=== PATIENT | female | born 1960 | race African-American/Black ===

== ENCOUNTER 2021-12-05 13:27 | Observation (INO) | payer OTHER, SELFPAY ==
[2021-12-05 14:23] LABS: #Eosinphils 0.2 thou/uL (0.0-0.7); #Lymphocytes 2.6 thou/uL (1.20-3.40); #Monocytes 0.5 thou/uL (0.11-0.59); #Neutrophils 3.2 thou/uL (1.40-6.50); %Basophils 0.6 % (0.0-1.0); %Eosinophils 3.4 % (0.0-10.0); %Lymphocytes 39.1 % (21.0-51.0); %Neutrophils 48.9 % (42.0-75.0); Hemoglobin 13.1 g/dL (12.0-16.0); Mean Corpuscular HGB CONC 33.5 g/dL (32.0-36.0); Mean Corpuscular Hemoglobin 32.1 pg (27.0-31.0); Mean Corpuscular Volume 95.8 fL (78.0-98.0); Mean Platelet Volume 8.7 fL (7.4-10.4); Platelet Count 214 thou/uL (130-400); RBC Distribution Width 11.4 % (11.5-14.5); Red Blood Cell (RBC) Count 4.07 mill/uL (4.20-5.40); White Blood Cell (WBC) Count 6.5 thou/uL (4.8-10.8)
[2021-12-05 14:42] LABS: ALT (SGPT) 13 U/L (8-55); AST (SGOT) 18 U/L (5-34); Albumin 3.6 g/dL (3.4-4.8); Alkaline Phosphatase 73 U/L (40-110); Anion Gap 11 mmol/L (10-20); BUN (Urea Nitrogen) 16 mg/dL (9.8-20.1); Bilirubin, Total 0.4 mg/dL (0.2-1.2); Calc. Creatinine Clearance 0 mL/min (70-130); Calcium 9.3 mg/dL (7.8-10.44); Carbon Dioxide 29 mmol/L (23-31); Chloride 106 mmol/L (98-107); Estimated GFR 69; Glucose 87 mg/dL (80-115); Lipase 27 U/L (8-78); Potassium 3.9 mmol/L (3.5-5.1); Protein, Total 6.6 g/dL (5.8-8.1); Sodium 142 mmol/L (136-145)
[2021-12-05] MEDS ORDERED: Nitroglycerin 0.4 MG TAB (25 Tab Bottle) SL PRN (16:26)
[2021-12-05 17:11] VITALS: BMI 32.4
[2021-12-05 17:40] LABS: Troponin I Less than 0.010 ng/mL (< 0.028)
[2021-12-05] MEDS: Hydrochlorothiazide 25 MG TAB PO SCH (20:12)
[2021-12-05 20:33] LABS: Troponin I Less than 0.010 ng/mL (< 0.028)
[2021-12-05] MEDS ORDERED: Gabapentin 300 MG CAP PO SCH (21:00)
[2021-12-05] MEDS: Cyclobenzaprine 10 MG TAB PO SCH (21:32)
[2021-12-06 05:10] LABS: Cardiac Risk 3.6 (Less than 4.5)
[2021-12-06] MEDS ORDERED: Albuterol Sulfate 2.5 mg/3 ml Neb NEB SCH ×2 (06:30→18:30)
[2021-12-06] MEDS: Budesonide 0.25 MG/2 ML NEB INH SCH ×2 (06:50→12:24)
[2021-12-06] MEDS: Hydrochlorothiazide 25 MG TAB PO SCH (07:32)
[2021-12-06] MEDS ORDERED: Regadenoson 0.4 MG/5 ML SYRINGE ONE (08:59)
[2021-12-06] MEDS ORDERED: Hydrochlorothiazide 25 MG TAB PO SCH (09:00)
[2021-12-06] MEDS ORDERED: Amlodipine 10 MG TAB PO SCH (09:00)
[2021-12-06] MEDS ORDERED: Enoxaparin Sodium 40 MG/0.4 ML SYRINGE SC SCH (09:00)
[2021-12-06] MEDS ORDERED: Amlodipine 5 MG TAB PO SCH (09:00)
[2021-12-06] MEDS: Cyclobenzaprine 10 MG TAB PO SCH (10:58)
[2021-12-06 12:31] VITALS: BP 129/69; TEMP 98.1
[2021-12-06] MEDS ORDERED: Budesonide 0.25 MG/2 ML NEB INH SCH (18:30)
== END 2021-12-06 15:30 | disposition home or self-care (01) ==
LOC: ERS 13:27 → 2SW 15:17
PROVIDERS: ADMIT Hospitalist; ATTEND Hospitalist
DX: R07.89 Other chest pain (principal); I25.10 Atherosclerotic heart disease of native coronary artery without angina pectoris; J44.9 Chronic obstructive pulmonary disease, unspecified; I11.9 Hypertensive heart disease without heart failure; G89.29 Other chronic pain; M54.9 Dorsalgia, unspecified; I08.3 Combined rheumatic disorders of mitral, aortic and tricuspid valves; F14.11 Cocaine abuse, in remission; F12.11 Cannabis abuse, in remission; Z79.82 Long term (current) use of aspirin; Z79.891 Long term (current) use of opiate analgesic; Z79.899 Other long term (current) drug therapy; Z88.1 Allergy status to other antibiotic agents; Z88.2 Allergy status to sulfonamides; Z20.822 Contact with and (suspected) exposure to COVID-19
CPT/HCPCS: 36415; 71045; 78452; 80053; 80061; 83690; 83880; 84484; 85025; 93005; 93017; 93306; 94640; 94760; A9500; G0378; J2785; J7611; J7626; U0003; U0005

== ENCOUNTER 2021-12-17 17:05 | Emergency (ER) | payer BC, SELFPAY ==
[2021-12-17] MEDS ORDERED: Ibuprofen 200 MG TAB ONE (17:34)
[2021-12-17 17:43] LABS: #Eosinphils 0.1 thou/uL (0.0-0.7); #Lymphocytes 2.7 thou/uL (1.20-3.40); #Monocytes 0.5 thou/uL (0.11-0.59); #Neutrophils 3.7 thou/uL (1.40-6.50); %Basophils 0.6 % (0.0-1.0); %Lymphocytes 38.4 % (21.0-51.0); %Monocytes 7.5 % (0.0-10.0); %Neutrophils 51.5 % (42.0-75.0); Hemoglobin 13.7 g/dL (12.0-16.0); Mean Corpuscular HGB CONC 33.3 g/dL (32.0-36.0); Mean Corpuscular Hemoglobin 31.5 pg (27.0-31.0); Mean Corpuscular Volume 94.7 fL (78.0-98.0); Mean Platelet Volume 8.6 fL (7.4-10.4); Platelet Count 243 thou/uL (130-400); RBC Distribution Width 11.4 % (11.5-14.5); Red Blood Cell (RBC) Count 4.35 mill/uL (4.20-5.40); White Blood Cell (WBC) Count 7.1 thou/uL (4.8-10.8)
[2021-12-17 17:46] LABS: Bilirubin Negative (Negative); Blood, Urine Negative (Negative); Glucose, Urine (Dipstick) Normal (Negative); Ketone, Urine Negative (Negative); Leukocyte 500 Leu/uL (Negative); Nitrite Negative (Negative); Protein, Urine (Dipstick) Negative (Neg-Trace); RBC/HPF 0-3 HPF (0-3); Specific Gravity, Urine 1.018 (1.002-1.036); Urobilinogen Normal mg/dL (Less than 2); pH, Urine 6.5 (5.0-9.0)
[2021-12-17 17:48] LABS: Bacteria/HPF 2+ HPF (None Seen); Clarity Cloudy (Clear)
[2021-12-17 18:04] LABS: ALT (SGPT) 14 U/L (8-55); AST (SGOT) 17 U/L (5-34); Albumin 4.2 g/dL (3.4-4.8); Alkaline Phosphatase 88 U/L (40-110); Anion Gap 15 mmol/L (10-20); BUN (Urea Nitrogen) 17 mg/dL (9.8-20.1); Bilirubin, Total 0.4 mg/dL (0.2-1.2); Calc. Creatinine Clearance 0 mL/min (70-130); Calcium 9.5 mg/dL (7.8-10.44); Carbon Dioxide 27 mmol/L (23-31); Chloride 105 mmol/L (98-107); Estimated GFR 92; Glucose 90 mg/dL (80-115); Lipase 31 U/L (8-78); Potassium 3.9 mmol/L (3.5-5.1); Protein, Total 7.2 g/dL (5.8-8.1); Sodium 143 mmol/L (136-145)
== END 2021-12-17 18:28 | disposition home or self-care (01) ==
LOC: ERS 17:05
DX: R07.89 Other chest pain (principal); J44.9 Chronic obstructive pulmonary disease, unspecified; I10 Essential (primary) hypertension; Z79.82 Long term (current) use of aspirin; Z79.899 Other long term (current) drug therapy
CPT/HCPCS: 36415; 71045; 80053; 81003; 81015; 83690; 84484; 85025; 93005